=== PATIENT | female | born 1975 | race Caucasian/White ===

== ENCOUNTER 2019-01-31 16:15 | Emergency (ER) | payer OTHER, BC ==
[2019-01-31] MEDS: ACETAMINOPHEN 325 MG TAB PO (17:15)
== END 2019-01-31 19:45 | disposition home or self-care (01) ==
LOC: FTE 16:15
DX: O99.89 Other specified diseases and conditions complicating pregnancy, childbirth and the puerperium (principal); M25.561 Pain in right knee; Z3A.19 19 weeks gestation of pregnancy
CPT/HCPCS: 76805; 99284-25